=== PATIENT | male | born 2000 | race Caucasian/White ===

== ENCOUNTER 2020-08-18 15:19 | Emergency (ER) | payer OTHER, SELFPAY ==
[2020-08-18 15:26] VITALS: BP 109/65; PULSE 99; RESP 16; TEMP 36.9; O2SAT 98
[2020-08-18] MEDS: cefTRIAXone 250 MG VIAL 500 MG IM (16:39)
[2020-08-18] MEDS: LIDOCAINE HCL 1% LOCAL INJ 20 ML VIAL (16:39)
--- NOTE | 2020-08-18 16:43 | ED.ABDPAIN ---
HPI - Abdominal Pain General Chief Complaint: Urogenital-Male Stated Complaint: STD check Time Seen by Provider: 08/18/20 16:01 Source: patient Mode of arrival: ambulatory Limitations: no limitations History of Present Illness HPI narrative: Patient is a 20-year-old male who presents to emergency department for evaluation of chlamydia noting that he had a partner who tested positive patient denies any symptoms denies history thereof has not taken or seen anyone for this complaint presents in no distress by private vehicle Related Data Allergies Allergy/AdvReac Type Severity Reaction Status Date / Time Penicillins Allergy Mild Unknown Verified 08/18/20 15:30 Review of Systems Review of Systems: All systems reviewed & are unremarkable except as noted in HPI and below PMFSH Past Medical History Medical History (Updated 08/18/20 @ 16:47 by Joey Hand PA-C) ADHD Social History Social History Gender identity (if verbalized by the patient): Male Exam Narrative: Exam Narrative: GENERAL: Well-appearing, well-nourished, and in no acute distress. HEAD: Normocephalic, atraumatic. EYES: PERRLA and EOMI. ENT: Nares clear, no rhinorrhea or epistaxis. Mucous membranes moist. CHEST: Clear to auscultation. No respiratory distress. No wheezes rales or rhonchi HEART: Regular rate and rhythm. No murmur heard. EXTREMITIES: Normal range of motion. No edema. SKIN: Warm, dry, no rash. NEURO: No focal deficits. Alert and oriented x3. PSYCH: Normal mood and affect. Course Course Emergency Course: Patient presented with request for treatment of chlamydia patient in no distress was treated with follow-up outpatient Vital Signs Vital signs: Vital Signs Temperature 98.4 F 08/18/20 15:26 Pulse Rate 99 08/18/20 15:26 Respiratory Rate 16 08/18/20 15:26 Blood Pressure 109/65 08/18/20 15:26 Pulse Oximetry 98 08/18/20 15:26 Temperature 98.4 F 08/18/20 15:26 Pulse Rate 99 08/18/20 15:26 Respiratory Rate 16 08/18/20 15:26 Blood Pressure 109/65 08/18/20 15:26 Pulse Oximetry 98 08/18/20 15:26 MDM - Abdominal Pain MDM Narrative Medical decision making narrative: Patient tested for chlamydia will follow up on an outpatient basis Lab Data Labs: Lab Results 08/18/20 08/18/20 Range/Units 16:32 16:32 Urine Color Pending Urine Appearance Pending Urine pH Pending Ur Specific [place] Pending Urine Protein Pending Urine Glucose (UA) Pending Urine Ketones Pending Ur Blood (Man) Pending Urine Nitrate Pending Urine Bilirubin Pending Urine Urobilinogen Pending Leukocyte Esterase Rfl Pending C.trachomatis RNA (TMA) Pending N.gonorrhoeae RNA (TMA) Pending T. vaginalis Amp RNA Pending Discharge Plan Discharge Clinical Impression: Chlamydia Patient Disposition: Home, Self-Care Condition: Stable Instructions: Antibiotic Form, Chlamydia (ED) Additional Instructions: Follow up with primary care in the next 2-3 days for re-evaluation for reevaluation and culture results. Antibiotics as prescribed. Increase fluid intake. Tylenol and Motrin for pain and or fever if needed. Follow up with your doctor for further care. Call your doctor or return to the emergency department if needed for worsening symptoms or problems, especially if you have persistent high fever, vomiting, inability to urinate, weakness, blood in your urine, change in mental status, or other serious concerns. Prescriptions: New doxycycline hyclate 100 mg tablet 100 mg PO BID 7 Days Qty: 14 RF: 0 Follow-up/Referrals: Myke Quintana MD [Physician] - Elmer,Nicolasa Lemus MD [Primary Care Provider] -
[2020-08-18 16:47] LABS: Add Urine Microscopic? NO; Appearance Urine Clear (Clear); Bilirubin Urine Negative (Negative); Blood Urine Negative (Negative); Color Urine Straw (Yellow); Glucose Urine UA Negative (Negative); Ketones Urine Negative (Negative); Leukocyte Esterase Ur Negative LEU/UL (Negative); Nitrate Urine Negative (Negative); Protein Urine Negative (Negative); RBC Urine 0-2 /hpf (0-2); Specific Grav Ur 1.011 (1.001-1.035); Urobilinogen Urine Negative mg/dL (<2.0)
[2020-08-18] MEDS: ACETAMINOPHEN 325 MG TABLET 650 MG PO (17:07)
== END 2020-08-18 17:08 | disposition home or self-care (01) ==
PROVIDERS: Physician Assistant; Emergency Provider Emergency Medicine; Family Provider Pediatrics Adolescent Medicine; PCP Pediatrics Adolescent Medicine
DX: A56.8 Sexually transmitted chlamydial infection of other sites (principal)
CPT/HCPCS: 81003; 87491; 87591; 87661; 96372; 99283; A9270; J0696

== ENCOUNTER 2021-04-27 06:43 | Emergency (ER) | payer OTHER, SELFPAY ==
[2021-04-27 06:48] VITALS: BP 121/82; PULSE 92; RESP 20; TEMP 36.6; O2SAT 100
--- NOTE | 2021-04-27 07:09 | PC.NURSE ---
Report taken from MARTINEZ Putnam.
--- NOTE | 2021-04-27 07:19 | ED.SKABFB ---
HPI - Skin/Abscess/Foreign Bdy General Chief complaint: Skin/Abscess/Foreign Body Stated complaint: Staph infection Time Seen by Provider: 04/27/21 07:01 Source: patient and RN notes reviewed Mode of arrival: ambulatory Limitations: no limitations History of Present Illness HPI narrative: This is 20 year old male who presents for evaluation of possible staph infection. Patient reports he has been dealing with having multiple ingrown hairs on his face, chest and groin for several days. He was evaluated by his primary care physician and he was prescribed antibiotic cream. He has not started using the prescribed medications yet, but he came to ER for reevaluation. He reports his doctor did not look at his face so he wanted to make sure he had right diagnosis. He does not currently have any lesion on his face or groin at the moment. He denies nausea, vomiting, fever or chills. He reports he has had to pull multiple hairs from his face. He states their appears to be pus on hair follicle. Related Data Allergies Allergy/AdvReac Type Severity Reaction Status Date / Time Penicillins Allergy Mild Unknown Verified 04/27/21 07:21 Review of Systems Review of Systems: All systems reviewed & are unremarkable except as noted in HPI and below PMFSH Past Medical History Medical History ADHD Social History Social History (Updated 04/27/21 @ 07:23 by Liz Olmos MD) Smoking status: Never smoker Gender identity (if verbalized by the patient): Male Exam Const: General: no acute distress and alert Orientation/consciousness: patient oriented x3 HENMT: Head: normocephalic and atraumatic Mouth: Yes Normal oral and palatal mucosa present and Yes lip normal Eyes: EOM: EOMs intact bilaterally Resp: Effort & Inspection: normal respiratory effort Skin: Other: bilateral cheeks wit redness that may be roseaca, no ingrown hair. Neuro: General: patient oriented x3, moves all extremities and CN's II-XI intact bilaterally Psych: Mental Status: mental status grossly normal Affect: normal affect Course Reevaluation(s) Reevaluation #1: I discussed with patient to only use razor once and throw away. He will start using prescribed antibiotics cream on his face. If there is no improvement he will get referral to dermatology. Date: 04/27/21 Time: 07:25 Vital Signs Vital signs: Vital Signs Temperature 97.8 F 04/27/21 06:48 Pulse Rate 92 04/27/21 06:48 Respiratory Rate 20 04/27/21 06:48 Blood Pressure 121/82 04/27/21 06:48 Pulse Oximetry 100 04/27/21 06:48 Temperature 97.8 F 04/27/21 06:48 Pulse Rate 92 04/27/21 06:48 Respiratory Rate 20 04/27/21 06:48 Blood Pressure 121/82 04/27/21 06:48 Pulse Oximetry 100 04/27/21 06:48 Discharge Plan Discharge Clinical Impression: Folliculitis Patient Disposition: Home, Self-Care Condition: Stable Instructions: Antibiotic Form, Acne (ED), Folliculitis (ED) Additional Instructions: Today you were seen for inflamed hair follicles. USe the medication prescribed my your doctor. If you do not have improvement return to your doctor for possible referral to accounting recruiter. Prescriptions: No Action doxycycline hyclate 100 mg tablet 100 mg PO BID 7 Days Qty: 14 RF: 0 Follow-up/Referrals: Elmer,Nicolasa Lemus MD [Primary Care Provider] -
== END 2021-04-27 07:39 | disposition home or self-care (01) ==
PROVIDERS: Emergency Provider General Practice; PCP Pediatrics Adolescent Medicine
DX: L73.9 Follicular disorder, unspecified (principal)
CPT/HCPCS: 99281

== ENCOUNTER 2023-11-01 20:38 | Emergency (ER) | payer OTHER, SELFPAY ==
[2023-11-01 20:46] VITALS: BP 121/69; PULSE 87; RESP 18; TEMP 36.5; O2SAT 98
[2023-11-01 21:55] VITALS: BP 118/72; PULSE 78; RESP 16; O2SAT 100
--- NOTE | 2023-11-01 23:08 | PC.NURSE ---
pt care and report given to MARTINEZ Tejada. all questions answered.
--- NOTE | 2023-11-01 23:11 | ED.GENADULT ---
[facility] - General Adult General Chief complaint: Wound/Laceration Stated complaint: right index finger laceration Time Seen by Provider: 11/01/23 22:12 Source: patient Mode of arrival: ambulatory Limitations: no limitations History of Present Illness HPI narrative: This is a 23-year-old male who presents to the ED with chief complaint of right index finger laceration that occurred at work tonight. 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 Reports bleeding is controlled. Denies any further sites of pain or injury. Denies any numbness or weakness Related Data Allergies Allergy/AdvReac Type Severity Reaction Status Date / Time Penicillins Allergy Mild Unknown Verified 11/01/23 20:48 Review of Systems Review of Systems: All systems as dictated in [facility] Past Medical History Medical History ADHD Social History Social History (Updated 04/27/21 @ 07:23 by Liz Olmos MD) Smoking status: Never smoker Gender identity (if verbalized by the patient): Male Exam Narrative: GENERAL: Well-appearing, well-nourished, and in no acute distress. MSK: Normal range of motion. No edema. SKIN: 1.5 cm superficial laceration to the dorsum of the right index finger. No active bleeding NEURO: Alert and oriented x3. No focal deficits. PSYCH: Normal mood and affect. Course Vital Signs Vital signs: Vital Signs Temperature 97.7 F 11/01/23 20:46 Pulse Rate 87 11/01/23 20:46 Respiratory Rate 18 11/01/23 20:46 Blood Pressure 121/69 11/01/23 20:46 Pulse Oximetry 98 11/01/23 20:46 Oxygen Delivery Room Air 11/01/23 20:46 Temperature 97.7 F 11/01/23 20:46 Pulse Rate 78 11/01/23 21:55 Respiratory Rate 16 11/01/23 21:55 Blood Pressure 118/72 11/01/23 21:55 Pulse Oximetry 100 11/01/23 21:55 Oxygen Delivery Room Air 11/01/23 20:46 Procedures Laceration Laceration 1: Date: 11/01/23 Time: 23:20 Site: hand Side (If applicable): right Size (cm): 1.5 Description: linear Depth: simple, single layer Local Anesthetic: none Pre-repair: wound explored and irrigated extensively ====== Skin Level ====== Skin layer closed with: dermabond and steri strips ====== Subcutaneous Layer ====== ====== Muscle Layer ====== ====== Tendon Layer ====== Medical Decision Making MDM Narrative Medical decision making narrative: This is a 23-year-old male who presents to the ED with chief complaint of laceration to the right index finger. Bleeding has stopped upon arrival to the ED. laceration is 1.5 cm and superficial. Vitals are normal. The finger was closed with Dermabond and Steri-Strips. Wound care instructions given. Pt will be discharged in stable condition. Return precautions given and supportive measures discussed. Pt is understanding and agreeable with plan for discharge and follow-up with PCP. Vital Signs Vital Signs: Vital Signs Temperature 97.7 F 11/01/23 20:46 Pulse Rate 87 11/01/23 20:46 Respiratory Rate 18 11/01/23 20:46 Blood Pressure 121/69 11/01/23 20:46 Pulse Oximetry 98 11/01/23 20:46 Oxygen Delivery Room Air 11/01/23 20:46 Temperature 97.7 F 11/01/23 20:46 Pulse Rate 78 11/01/23 21:55 Respiratory Rate 16 11/01/23 21:55 Blood Pressure 118/72 11/01/23 21:55 Pulse Oximetry 100 11/01/23 21:55 Oxygen Delivery Room Air 11/01/23 20:46 Discharge Plan Discharge Clinical Impression: Laceration Patient Disposition: Home, Self-Care Condition: Stable Instructions: Antibiotic Form Additional Instructions: Exam today is reassuring overall. This wound should heal well over the next couple of days and the Steri-Strips and Dermabond will start to peel off. Keep the area clean. Watch for signs of infection. If yo
== END 2023-11-01 23:38 | disposition home or self-care (01) ==
PROVIDERS: Emergency Provider Physician Assistant
DX: S61.210A Laceration without foreign body of right index finger without damage to nail, initial encounter (principal); W27.4XXA Contact with kitchen utensil, initial encounter; Y93.G1 Activity, food preparation and clean up
CPT/HCPCS: 12001; 99282